=== PATIENT | female | born 1975 | race Caucasian/White ===

== ENCOUNTER 2016-07-17 20:53 | Emergency (ER) | payer MEDICAID, OTHER ==
[2016-07-17] MEDS ORDERED: Sodium Chloride 0.9% 1,000 ML IV ONE (22:25)
--- NOTE | 2016-07-17 23:04 | CT ---
EXAM: CT Head Without Intravenous Contrast CLINICAL HISTORY: 40 years old, female; Condition or disease; Headache; Headache not specified TECHNIQUE: Axial computed tomography images of the head/brain without intravenous contrast. COMPARISON: No relevant prior studies available. FINDINGS: Brain: No acute intracranial hemorrhage. No significant white matter disease. No edema. Ventricles: No significant ventriculomegaly. Bones: No acute displaced fracture. Sinuses: Unremarkable as visualized. No acute sinusitis. Mastoid air cells: Unremarkable as visualized. No mastoid effusion. IMPRESSION: No acute intracranial hemorrhage, or suspicious mass effect.
[2016-07-17] MEDS ORDERED: Sodium Chloride 0.9% 100 ML ONE (23:42)
[2016-07-17] MEDS ORDERED: Sodium Chloride 0.9% 1,000 ML ONE (23:42)
[2016-07-18 00:10] LABS: BASO % 0.6 % (0.0-2.0); EOS # 0.4 K/uL (0.0-0.7); HEMATOCRIT 35.5 % (34.0-47.0); LYMPH # 2.6 K/uL (1.0-4.3); LYMPH % 35.1 % (20.0-40.0); MEAN CELL VOLUME 85.7 fL (81.0-99.0); MEAN CORPUSCULAR HEMOGLOBIN 27.2 pg (27.0-31.0); MEAN CORPUSCULAR HGB CONC 31.8 g/dL (33.0-37.0); MEAN PLATELET VOLUME 8.5 fL (7.2-11.7); MONO # 0.3 K/uL (0.0-0.8); MONO % 4.6 % (0.0-10.0); NRBC % 0.1 % (0.0-2.0); RED CELL DISTRIBUTION WIDTH 13.5 % (11.5-14.5); WHITE BLOOD COUNT 7.5 K/uL (4.8-10.8)
[2016-07-18 00:24] LABS: CHLORIDE 102 mmol/L (98-107)
[2016-07-18 00:25] LABS: SODIUM 139 mmol/L (132-148)
[2016-07-18 00:27] LABS: ALB/GLOB RATIO 1.2 (1.0-2.1); ALKALINE PHOSPHATASE 91 U/L (38-126); AST/SGOT 27 U/L (14-36); BILIRUBIN,TOTAL 0.2 mg/dL (0.2-1.3); CARBON DIOXIDE 26 mmol/L (22-30); GFR AFRICAN-AMERICAN > 60; TOTAL PROTEIN 7.3 g/dL (6.3-8.3)
[2016-07-18 00:28] LABS: ALT/SGPT 17 U/L (9-52); BLOOD UREA NITROGEN 15 mg/dL (7-17); CALCIUM 8.1 mg/dl (8.6-10.4); GLUCOSE,RANDOM 100 mg/dL (65-105)
--- NOTE | 2016-07-18 00:29 | C.PDOC ---
Time Seen by Provider: 07/17/16 21:53 Chief Complaint (Nursing): Headache History Per: Patient Onset/Duration Of Symptoms: Days (3), Intermittent Episodes, Gradual Current Symptoms Are (Timing): Still Present Severity: Moderate Quality: "Pain" Additional History Per: Prior Records Past Medical History Reviewed: Historical Data, Nursing Documentation, Vital Signs Vital Signs: Last Vital Signs Temp 97.9 F 07/17/16 21:10 Pulse 94 H 07/17/16 21:10 Resp 20 07/17/16 21:10 BP 163/117 H 07/17/16 21:10 Pulse Ox 98 07/18/16 00:28 - Medical History PMH: Anxiety, Bipolar Disorder, HTN Family History: States: Unknown Family Hx - Social History Hx Tobacco Use: Yes Hx Alcohol Use: No Hx Substance Use: No - Immunization History Hx Tetanus Toxoid Vaccination: Yes Hx Influenza Vaccination: No Hx Pneumococcal Vaccination: No Review Of Systems Except As Marked, All Systems Reviewed And Found Negative. Constitutional: Negative for: Fever, Weakness ENT: Positive for: Nose Congestion Cardiovascular: Negative for: Chest Pain Respiratory: Negative for: Shortness of Breath Gastrointestinal: Negative for: Vomiting, Abdominal Pain Musculoskeletal: Negative for: Neck Pain Skin: Negative for: Rash Neurological: Positive for: Headache. Negative for: Weakness, Numbness, Incoordination, Change in Speech, Confusion, Seizures, Altered Mental Status Physical Exam - Physical Exam Appears: Non-toxic, No Acute Distress Skin: Normal Color, Warm, Dry, No Rash Head: Atraumatic, Normacephalic Eye(s): bilateral: Normal Inspection, PERRL, EOMI Ear(s): Bilateral: Normal Neck: Normal ROM, Supple Cardiovascular: Rhythm Regular Respiratory: Normal Breath Sounds, No Accessory Muscle Use Gastrointestinal/Abdominal: Soft, No Tenderness Back: No CVA Tenderness Extremity: Normal ROM Neurological/Psych: Oriented x3, Normal Speech, Normal Cognition, Normal Cranial Nerves, No Cerebellar Signs, Normal Motor, Normal Sensation ED Course And Treatment - Laboratory Results Result Diagrams: 07/17/16 23:57 07/17/16 23:57 Lab Interpretation: No Acute Changes Urine POC: Negative O2 Sat by Pulse Oximetry: 98 Pulse Ox Interpretation: Normal - CT Scan/US CT head Other Rad Studies (CT/US): Read By Radiologist, Radiology Report Reviewed CT/US Interpretation: NAD Progress Note: Pt feels much better and wants to go home. Reassessment Condition: Improved Progress - Interventions Interventions:: Observation, Intravenous fluid - Medications Administered Intravenous: Antiemetic, NSAID - Data Reviewed Data Reviewed: Lab, Diagnostic imaging, Old records - Patient Status Patient status: Mostly improved - Continuity of Care Discussed patient case with:: Patient, ED Nurse - Patient Plan Patient Plan: Discharge, F/U with PCP, Continue present meds Disposition Counseled Patient/Family Regarding: Studies Performed, Diagnosis, Need For Followup, Rx Given - Disposition Referrals: Christen Rod MD [Medical Doctor] - Disposition: HOME/ ROUTINE Disposition Time: 01:02 Condition: IMPROVED Additional Instructions: Follow up with your doctor for further evaluation and treatment. Return to the ER if you develop weakness, numbness, vomiting, confusion, severe headache, worsening of symptoms or if you have any other concerns. Prescriptions: Acetaminophen/Butalbital/Caf [Fioricet] 1 tab PO TID PRN #20 tab PRN Reason: Headache Instructions: General Headache (ED) - Clinical Impression Clinical Impression: Headache
[2016-07-18 01:28] VITALS: BP 150/90; PULSE 84; RESP 18; TEMP 98.6; O2SAT 97
== END 2016-07-18 01:31 | disposition home or self-care (01) ==
LOC: C.ER 20:53
DX: R51 Headache (principal)
CPT/HCPCS: 70450; 80053; 85025; 96361; 96374; 96375; 99284; J1885; J2765; J7040

== ENCOUNTER 2017-07-09 00:53 | Emergency (ER) | payer MEDICAID, OTHER ==
[2017-07-09] MEDS ORDERED: Sodium Chloride 0.9% 1,000 ML IV ONE (01:17)
--- NOTE | 2017-07-09 01:17 | C.PDOC ---
History Of Present Illness 41 year old female with 2 miscarriages and 1 still born presents to the ED c/o vaginal bleeding. Patient states she is 6 weeks , started having crampy abdominal pain and noticed some spotting of large clots. Patient denies fever, chills, SOB, CP, dysuria, back pain. Time Seen by Provider: 07/09/17 01:15 Chief Complaint (Nursing): Female Genitourinary History Per: Patient History/Exam Limitations: no limitations Onset/Duration Of Symptoms: Hrs Current Symptoms Are (Timing): Still Present Quality Of Discomfort: "Pain" Alleviating Factors: None Additional History Per: Patient Abnormal Vaginal Bleeding: Yes : 7 Para: 4 Miscarriage: 2 Past Medical History Reviewed: Historical Data, Nursing Documentation, Vital Signs Vital Signs: Last Vital Signs Temp 97.7 F 07/09/17 05:08 Pulse 93 H 07/09/17 05:08 Resp 20 07/09/17 05:08 BP 132/88 07/09/17 05:08 Pulse Ox 97 07/09/17 05:44 - Medical History PMH: Anxiety, Bipolar Disorder, Depression, HTN Surgical History: No Surg Hx Family History: States: Unknown Family Hx - Social History Hx Tobacco Use: Yes Hx Alcohol Use: No Hx Substance Use: No - Immunization History Hx Tetanus Toxoid Vaccination: Yes Hx Influenza Vaccination: No Hx Pneumococcal Vaccination: No Review Of Systems Constitutional: Negative for: Fever, Chills Cardiovascular: Negative for: Chest Pain Respiratory: Negative for: Shortness of Breath Gastrointestinal: Positive for: Abdominal Pain Genitourinary: Positive for: Vaginal Bleeding Skin: Negative for: Rash Physical Exam - Physical Exam Appears: Non-toxic, No Acute Distress Skin: Warm, Dry Head: Normacephalic Eye(s): bilateral: Normal Inspection Nose: No Discharge Oral Mucosa: Moist Neck: Supple Chest: Symmetrical Cardiovascular: Rhythm Regular, No Murmur Respiratory: No Rales, No Rhonchi, No Wheezing Gastrointestinal/Abdominal: Soft, Tenderness (suprapubic), No Guarding, No Rebound Extremity: Normal ROM, No Tenderness, No Swelling Neurological/Psych: Oriented x3 Gait: Steady ED Course And Treatment - Laboratory Results Result Diagrams: 07/09/17 02:25 O2 Sat by Pulse Oximetry: 97 (ON RA) Pulse Ox Interpretation: Normal - CT Scan/US Transvaginal US Other Rad Studies (CT/US): Read By Radiologist, Radiology Report Reviewed CT/US Interpretation: IMPRESSION:No intrauterine is identified. Diagnostic considerations include spontaneous . Ectopic is not completely excluded. Clinical correlation is recommended. Followup serial beta- hCG. levels and ultrasound could be obtained if clinically indicated. Thickened heterogeneous endometrial cavity with minimal vascularity. Findings could be secondary. to hematoma or retained products of conception in the correct clinical setting. Right ovarian cyst, probable corpus luteal cyst Progress Note: Plan: - Labs. - Morphine 2 mg IVP. - IV fluids. - UA Reevaluation Time: 05:45 Reassessment Condition: Improved Disposition Counseled Patient/Family Regarding: Studies Performed, Diagnosis, Need For Followup - Disposition Referrals: [facility] [Outside] [facility] [Outside] Disposition: HOME/ ROUTINE Disposition Time: 01:16 Condition: FAIR Instructions: Miscarriage (DC) Forms: [facility] (Kenyan) - Clinical Impression Clinical Impression: Spontaneous - Scribe Statement The provider has reviewed the documentation as recorded by the Scribe Sandip Brand All medical record entries made by the Scribe were at my direction and personally dictated by me. I have reviewed the chart and agree that the record accurately reflects my personal performance of the history, physical exam, medical decision making, and the department course for this patient. I have also personally directed, reviewed, and agree with the discharge instructions and disposition.
[2017-07-09] MEDS ORDERED: Morphine 4 MG/ML VIAL ONE (02:34)
[2017-07-09 02:42] VITALS: RESP 20
[2017-07-09 03:04] LABS: ALBUMIN 3.7 g/dL (3.5-5.0); ALT/SGPT 8 U/L (9-52); AST/SGOT 19 U/L (14-36); BLOOD UREA NITROGEN 13 mg/dL (7-17); GFR AFRICAN-AMERICAN > 60; GFR NON-AFRICAN AMERICAN > 60
[2017-07-09 03:08] LABS: PROTHROMBIN TIME 11.7 SECONDS (9.7-12.2)
--- NOTE | 2017-07-09 05:41 | US ---
EXAM: US Pelvis Complete, Transabdominal CLINICAL HISTORY: 41 years old, female; Signs and symptoms; Other: Vag bleed / pain; Additional info: Vag bleed, The beta-hCG level is 26,960. TECHNIQUE: Real-time transabdominal pelvic ultrasound (complete) with image documentation. COMPARISON: No relevant prior studies available. FINDINGS: Uterus/cervix: Limited visualization of the uterus which measures 11.4 x 5.7 x 6.0 cm. The endometrial stripe is not well-visualized. No intrauterine is identified. Right ovary: Not well-visualized. Left ovary: Not well-visualized. Free fluid: No free fluid. Bladder: Unremarkable as visualized. Wall is normal thickness for degree of distention. IMPRESSION: Limited visualization of the uterus and ovaries. No intrauterine is identified. Transvaginal ultrasound was performed. EXAM: US Pelvis, Transvaginal CLINICAL HISTORY: 41 years old, female; Signs and symptoms; Other: Vag bleed / pain; Additional info: Vag bleed, , passing clots TECHNIQUE: Real-time transvaginal pelvic ultrasound (complete) with image documentation. Transvaginal imaging was used for better evaluation of the endometrium and adnexa. COMPARISON: No relevant prior studies available. FINDINGS: Uterus/cervix: The retroverted uterus measures 10.3 x 5.7 x 6.8 cm and demonstrates normal contour and echotexture. No myometrial mass. Normal cervix measuring 4.9 cm. The endometrial cavity is thickened and heterogeneous with minimal vascularity peripherally measuring 2.6 cm. No intrauterine is identified. No gestational sac. No pole or yolk sac. Right ovary: The right ovary measures 3.1 x 3.1 x 3.9 cm. There is a cyst in the right ovary measuring 2.6 x 2.7 x 2.1 cm. No mass. Normal blood flow. Left ovary: Unremarkable measuring 3.5 x 1.8 x 2.0 cm. No mass. Normal blood flow. Free fluid: No free fluid. Bladder: Empty bladder which cannot be evaluated with this probe. IMPRESSION: No intrauterine is identified. Diagnostic considerations include spontaneous . Ectopic is not completely excluded. Clinical correlation is recommended. Followup serial beta-hCG levels and ultrasound could be obtained if clinically indicated. Thickened heterogeneous endometrial cavity with minimal vascularity. Findings could be secondary to hematoma or retained products of conception in the correct clinical setting. Right ovarian cyst, probable corpus luteal cyst.
[2017-07-09 06:22] VITALS: BP 136/79; PULSE 89; TEMP 98; O2SAT 99
[2017-07-09 07:22] LABS: BASO % 0.4 % (0.0-2.0); EOS # 0.3 K/uL (0.0-0.7); EOS % 2.5 % (0.0-4.0); HEMOGLOBIN 11.3 g/dL (11.0-16.0); LYMPH # 2.8 K/uL (1.0-4.3); LYMPH % 26.6 % (20.0-40.0); MEAN CELL VOLUME 84.4 fL (81.0-99.0); MEAN CORPUSCULAR HEMOGLOBIN 28.5 pg (27.0-31.0); MEAN CORPUSCULAR HGB CONC 33.8 g/dL (33.0-37.0); MEAN PLATELET VOLUME 7.8 fL (7.2-11.7); MONO # 0.6 K/uL (0.0-0.8); MONO % 5.4 % (0.0-10.0); NEUT # 6.8 K/uL (1.8-7.0); NEUT % 65.1 % (50.0-75.0); RBC 3.95 Mil/uL (3.80-5.20); RED CELL DISTRIBUTION WIDTH 14.5 % (11.5-14.5); WHITE BLOOD COUNT 10.5 K/uL (4.8-10.8)
== END 2017-07-09 06:24 | disposition home or self-care (01) ==
LOC: C.ER 00:53 → SUPCPDRO 00:53 → C.ER 06:24
DX: O03.9 Complete or unspecified spontaneous abortion without complication (principal)
CPT/HCPCS: 76830; 76856; 80053; 84702; 85025; 85610; 85730; 86850; 86900; 96361; 96374; 99285; J2270; J2792; J7040

== ENCOUNTER 2017-10-26 14:42 | Emergency (ER) | payer MEDICAID, OTHER ==
--- NOTE | 2017-10-26 15:10 | C.PDOC ---
Time Seen by Provider: 10/26/17 15:07 Chief Complaint (Nursing): Abnormal Skin Integrity Past Medical History Vital Signs: Last Vital Signs Temp 98.0 F 10/26/17 14:45 Pulse 101 H 10/26/17 14:45 Resp 20 10/26/17 14:45 BP 173/135 H 10/26/17 14:45 Pulse Ox 99 10/26/17 14:45 - Medical History PMH: Anxiety, Bipolar Disorder, Depression, HTN Family History: States: Unknown Family Hx - Social History Hx Tobacco Use: Yes Hx Alcohol Use: No Hx Substance Use: No - Immunization History Hx Tetanus Toxoid Vaccination: Yes Hx Influenza Vaccination: No Hx Pneumococcal Vaccination: No ED Course And Treatment O2 Sat by Pulse Oximetry: 99 Disposition - Disposition
--- NOTE | 2017-10-26 15:16 | C.PDOC ---
History Of Present Illness <Siobahn Norman - Last Filed: 10/26/17 16:16> <Zeb Gross - Last Filed: 10/26/17 16:24> Pt accidentally injured herself with a kitchen knife. (Zeb Gross) <Siobhan Norman - Last Filed: 10/26/17 16:16> History Per: Patient Onset/Duration Of Symptoms: Other ([facility]) Current Symptoms Are (Timing): Still Present Location Of Injury: Right: Hand Severity: Mild Additional History Per: Prior Records <Zeb Gross - Last Filed: 10/26/17 16:24> Time Seen by Provider: 10/26/17 15:07 Chief Complaint (Nursing): Abnormal Skin Integrity Past Medical History Reviewed: Historical Data, Nursing Documentation, Vital Signs - Medical History PMH: Anxiety, Bipolar Disorder, Depression, HTN Family History: States: Unknown Family Hx - Social History Hx Tobacco Use: Yes Hx Alcohol Use: No Hx Substance Use: No - Immunization History Hx Tetanus Toxoid Vaccination: Yes Hx Influenza Vaccination: No Hx Pneumococcal Vaccination: No <Zeb Gross - Last Filed: 10/26/17 16:24> Vital Signs: Last Vital Signs Temp 98.2 F 10/26/17 16:17 Pulse 89 10/26/17 16:17 Resp 18 10/26/17 16:17 BP 115/87 10/26/17 16:17 Pulse Ox 98 10/26/17 16:17 Review Of Systems Except As Marked, All Systems Reviewed And Found Negative. Constitutional: Negative for: Fever, Weakness Cardiovascular: Negative for: Chest Pain Respiratory: Negative for: Shortness of Breath Gastrointestinal: Negative for: Vomiting, Abdominal Pain Musculoskeletal: Negative for: Neck Pain Skin: Negative for: Rash Neurological: Negative for: Weakness, Numbness <Zeb Gross - Last Filed: 10/26/17 16:24> Physical Exam - Physical Exam Appears: Non-toxic, No Acute Distress Skin: Normal Color, Warm, Dry Head: Atraumatic, Normacephalic Eye(s): bilateral: Normal Inspection, PERRL, EOMI Neck: Normal ROM, Supple Cardiovascular: Rhythm Regular Respiratory: Normal Breath Sounds, No Accessory Muscle Use Gastrointestinal/Abdominal: Soft Extremity: Normal ROM, Capillary Refill (wnl), No Swelling, Other (small laceration vs stab wound to dorsum of right hand between thumb and index finger. No active bleeding) Extremity: Bilateral: Normal Color And Temperature Pulses: Right Radial: Normal Neurological/Psych: Oriented x3, Normal Motor, Normal Sensation <Zeb Gross Celso - Last Filed: 10/26/17 16:24> ED Course And Treatment O2 Sat by Pulse Oximetry: 99 Pulse Ox Interpretation: Normal Progress Note: Pt was found to be hypertensive. She states that she forgot to take her BP med (Norvasc) this morning. Laceration was repaired by BAKARI Norman. BP much improved after a dose of Norvasc. Reassessment Condition: Improved <RenatoJoyajosé luis Celso - Last Filed: 10/26/17 16:24> Procedure: Wound Repair - Time Out Time Out: Side verified - Consent Obtained Consent obtained: Verbal - Performed by Performed by: Mid-level Provider - Indications Indication(s):: Laceration - Location Location:: Right, Hand Shape:: Linear Dimensions Length cm: 0.7 Depth:: Epidermis - Debris Debris:: None - Complexity Complexity:: Simple (one layer) - Wound repair method [place]:: Tissue glue, Steri-strips - Patient tolerated procedure Patient Tolerated Procedure:: Well <Siobhan Norman - Last Filed: 10/26/17 16:16> Disposition - Disposition Disposition Time: 16:18 <Siobhan Norman - Last Filed: 10/26/17 16:16> Counseled Patient/Family Regarding: Diagnosis, Need For Followup, Rx Given - Disposition Disposition Time: 16:21 <RenatoJoyajosé luis Celso - Last Filed: 10/26/17 16:24> - Disposition Disposition: HOME/ ROUTINE Condition: STABLE Additional Instructions: Take your medications as prescribed. Follow up with your doctor. Return to the ER if you develop redness, swelling, pus drainage, worsening of symptoms or if you have any other concerns. Prescriptions: Cephalexin [Keflex] 500 mg PO TID #15 capsule Instructions: Laceration Repair With Glue (DC) Forms: [employer] (Romanian) - Clinical Impression Clinical Impression: Hand laceration
[2017-10-26 15:25] VITALS: RESP 18
[2017-10-26 16:19] VITALS: BP 115/87; PULSE 89; TEMP 98.2
[2017-10-26 16:24] VITALS: O2SAT 99
== END 2017-10-26 16:34 | disposition home or self-care (01) ==
LOC: C.ER 14:42
DX: S61.411A Laceration without foreign body of right hand, initial encounter (principal); W26.0XXA Contact with knife, initial encounter; I10 Essential (primary) hypertension

== ENCOUNTER 2018-01-14 18:31 | Emergency (ER) | payer MEDICAID, OTHER ==
[2018-01-14 18:58] VITALS: TEMP 99.5; O2SAT 98
[2018-01-14] MEDS ORDERED: Promethazine/Cod 6.25mg-10mg/5ml Syr UD PO STA (20:04)
[2018-01-14] MEDS ORDERED: Promethazine/Cod 6.25mg-10mg/5ml Syr UD ONE (20:21)
--- NOTE | 2018-01-14 20:24 | C.PDOC ---
Addendum entered and electronically signed by Hazel Leon PA 01/19/18 20:54: Addendum Addendum: CXR negative. On re-exam, the patient is resting comfortably and is in NAD. Original Note: History Of Present Illness 42 y/o female presents to ED with c/o persistent non productive cough for several weeks and states cough is now associated with rib pain. Patient denies recent travel, fever, hemoptysis, vomiting, diarrhea or any other complaints at this time. Time Seen by Provider: 01/14/18 19:15 Chief Complaint (Nursing): Flu-like Symptoms History Per: Patient History/Exam Limitations: no limitations Onset/Duration Of Symptoms: Days Current Symptoms Are (Timing): Still Present Past Medical History Reviewed: Historical Data, Nursing Documentation, Vital Signs Vital Signs: Last Vital Signs Temp 99.5 F 01/14/18 18:55 Pulse 103 H 01/14/18 18:55 Resp 18 01/14/18 18:55 BP 145/90 01/14/18 18:55 Pulse Ox 98 01/14/18 18:55 - Medical History PMH: Anxiety, Bipolar Disorder, Depression, HTN Surgical History: No Surg Hx Family History: States: No Known Family Hx - Social History Hx Tobacco Use: Yes Hx Alcohol Use: No Hx Substance Use: No - Immunization History Hx Tetanus Toxoid Vaccination: No Hx Influenza Vaccination: No Hx Pneumococcal Vaccination: No Review Of Systems Constitutional: Negative for: Fever, Chills Cardiovascular: Negative for: Chest Pain Respiratory: Positive for: Cough. Negative for: Shortness of Breath Gastrointestinal: Negative for: Vomiting, Diarrhea Skin: Negative for: Rash Physical Exam - Physical Exam Appears: Non-toxic, No Acute Distress Skin: Warm, Dry, No Rash Head: Atraumatic, Normacephalic Eye(s): bilateral: Normal Inspection Oral Mucosa: Moist Throat: Normal, No Erythema, No Exudate Neck: Normal ROM, Supple Cardiovascular: Rhythm Regular Respiratory: No Rales, Rhonchi (scant), No Wheezing Gastrointestinal/Abdominal: Soft, No Tenderness, No Guarding, No Rebound Neurological/Psych: Oriented x3, Normal Speech, Normal Cognition ED Course And Treatment O2 Sat by Pulse Oximetry: 98 (RA) Pulse Ox Interpretation: Normal Disposition - Disposition Referrals: Myriam Colón MD [Medical Doctor] - Jakob Mark MD [Staff Provider] - Disposition: HOME/ ROUTINE Disposition Time: 20:24 Condition: STABLE Additional Instructions: Follow up with the medical doctor within 1-2 days. Return if worsened. Prescriptions: Loratadine [Claritin] 10 mg PO DAILY #10 tab predniSONE [Prednisone] 20 mg PO BID #10 tab Promethazine/Codeine [Phenergan/Codeine Oral Syrup] 5 ml PO Q8 PRN #50 ml PRN Reason: Cough Instructions: Acute Bronchitis Forms: [facility] (Albanian), Work Excuse - Clinical Impression Clinical Impression: Bronchitis - PA / DOCUMENT MANAGEMENT CONSULTANT / Resident Statement MD/DO has reviewed & agrees with the documentation as recorded. - Scribe Statement The provider has reviewed the documentation as recorded by the Marcusibgurmeet Betancourt All medical record entries made by the Marcusibgurmeet were at my direction and personally dictated by me. I have reviewed the chart and agree that the record accurately reflects my personal performance of the history, physical exam, medical decision making, and the department course for this patient. I have also personally directed, reviewed, and agree with the discharge instructions and disposition.
[2018-01-14 20:27] VITALS: BP 161/103; PULSE 93; RESP 20
--- NOTE | 2018-01-15 08:40 | RAD ---
Date of service: 01/14/2018 HISTORY: cough x several weeks COMPARISON: No prior. TECHNIQUE: Chest PA and lateral FINDINGS: LUNGS: No active pulmonary disease. PLEURA: No significant pleural effusion identified. No pneumothorax apparent. CARDIOVASCULAR: No atherosclerotic calcification present Normal. OSSEOUS STRUCTURES: No significant abnormalities. VISUALIZED UPPER ABDOMEN: Normal. OTHER FINDINGS: None. IMPRESSION: No acute cardiopulmonary disease appreciated.
== END 2018-01-14 20:32 | disposition home or self-care (01) ==
LOC: C.ER 18:31
DX: J40 Bronchitis, not specified as acute or chronic (principal)

== ENCOUNTER 2018-01-30 10:10 | Emergency (ER) | payer MEDICAID, OTHER ==
[2018-01-30 10:33] VITALS: BP 147/92; PULSE 82; RESP 18; TEMP 98.5; O2SAT 95
--- NOTE | 2018-01-30 11:48 | C.PDOC ---
History Of Present Illness 42 year old female comes in for evaluation of left shoulder and left hip pain developed since yesterday after sustaining mechanical fall. Pain is localized and gets worse with ambulation and movement. Denies head injury, LOC, syncope, neck pain, CP, denies weakness, deformity, sensory or vascular deficits to Left UEs and LEs. Ambulate to ED for evaluation, not in any apparent distress. - HPI Time Seen by Provider: 01/30/18 10:58 Chief Complaint (Nursing): Trauma History Per: Patient History/Exam Limitations: no limitations Onset/Duration Of Symptoms: Days Location Of Injury: Left: Hip, Shoulder Past Medical History Reviewed: Historical Data, Nursing Documentation, Vital Signs Vital Signs: Last Vital Signs Temp 98.5 F 01/30/18 10:30 Pulse 82 01/30/18 10:30 Resp 18 01/30/18 10:30 BP 147/92 H 01/30/18 10:30 Pulse Ox 95 01/30/18 10:30 - Medical History PMH: Anxiety, Bipolar Disorder, Depression, HTN Family History: States: Unknown Family Hx - Social History Hx Tobacco Use: Yes Hx Alcohol Use: No Hx Substance Use: No - Immunization History Hx Tetanus Toxoid Vaccination: No Hx Influenza Vaccination: No Hx Pneumococcal Vaccination: No Review Of Systems Except As Marked, All Systems Reviewed And Found Negative. Constitutional: Negative for: Fever, Weakness Eyes: Negative for: Vision Change ENT: Negative for: Ear Discharge, Nose Discharge Cardiovascular: Negative for: Chest Pain Respiratory: Negative for: Shortness of Breath Gastrointestinal: Negative for: Nausea, Vomiting Musculoskeletal: Positive for: Shoulder Pain (left ), Other (left hip pain ) Skin: Negative for: Bruising Neurological: Negative for: Numbness, Altered Mental Status, Headache, Dizziness, Other Physical Exam - Physical Exam Appears: Well, Non-toxic, No Acute Distress Skin: Normal Color, Warm, Dry, No Ecchymosis Head: Atraumatic, Normacephalic Eye(s): bilateral: PERRL Nose: No Deformity, No Tenderness Oral Mucosa: Moist Neck: Normal ROM, Trachea Midline, No Midline Cervical Tenderness, No Step Off Deformity, Supple Cardiovascular: Rhythm Regular Respiratory: No Stridor, No Wheezing Gastrointestinal/Abdominal: Soft, No Tenderness Back: No Vertebral Tenderness Extremity: Normal ROM (JERI of Left shoulder and left hip), Tenderness (superior aspect Left shoulder and overlying left hip. NO leg shortening, no brusing. NO palpable deformity.), No Deformity, No Swelling Extremity: Bilateral: Atraumatic Neurological/Psych: Oriented x3, Normal Speech, Normal Motor, Normal Sensation, Normal Reflexes ED Course And Treatment O2 Sat by Pulse Oximetry: 95 - Other Rad Left shoulder X-Ray: Interpreted by Me, Viewed By Me Interpretation: (-) acute fx or dislocation Left hip X-Ray: Interpreted by Me, Viewed By Me Interpretation: (-) acute fx or disloctaion Progress Note: On re-eval, pt is afebrile, hemodynamicaly stable. non-toxic. Ambulatory in ED with stable gait. head: AT/NC. Neck: Supple, (-) midline tenderness. FAROM of Left shoulder and Left hip, no defomrity, no neurovascular deficits. Imagings review (-) acute fx or dislocation. Pt has clinical finidngs c/w left shoulder/left hip contusion/strain s/p mechanical fall. Pt advised. ref. to F/u with Ortho in 2-3 dyas for re-eval. return if any new changes. Disposition Counseled Patient/Family Regarding: Studies Performed, Diagnosis, Need For Followup, Rx Given - Disposition Referrals: [facility] [Outside] Terrell Bowser III, MD [Staff Provider] - Disposition: HOME/ ROUTINE Disposition Time: 11:52 Condition: STABLE Additional Instructions: Avoid prolong walking or any strenuous activity for 1 week take pain medication as prescribed follow up with Orthopedist in 2-3 days as need for re-evaluation. return to ED if any worsening or new changes. Prescriptions: traMADol [Ultram] 50 mg PO Q12 #10 tab Instructions: Shoulder Sprain, Hip Pain Forms: [employer] (Setswana) - Clinical Impression Clinical Impression: Shoulder strain, Contusion, hip
--- NOTE | 2018-01-30 12:15 | RAD ---
PROCEDURE: Left Hip X-ray Radiographs. HISTORY: injury COMPARISON: None. FINDINGS: BONES: No acute fracture. JOINTS: Normal. SOFT TISSUES: Normal. OTHER FINDINGS: None. IMPRESSION: Demonstrated fracture or dislocation.
--- NOTE | 2018-01-30 12:15 | RAD ---
Date of service: 01/30/2018 PROCEDURE: Radiographs of the Left Shoulder HISTORY: injury COMPARISON: No prior. FINDINGS: BONES: No acute fracture. JOINTS: Unremarkable. SOFT TISSUES: Normal. OTHER FINDINGS: None. IMPRESSION: No demonstrated fracture or dislocation.
== END 2018-01-30 12:08 | disposition home or self-care (01) ==
LOC: C.ER 10:10
DX: S46.912A Strain of unspecified muscle, fascia and tendon at shoulder and upper arm level, left arm, initial encounter (principal); S70.02XA Contusion of left hip, initial encounter; W18.30XA Fall on same level, unspecified, initial encounter